=== PATIENT | male | born 2000 | race Caucasian/White ===

== ENCOUNTER 2019-10-27 23:34 | Emergency (ER) | payer MEDICAID, SELFPAY ==
[2019-10-27 23:35] VITALS: BP 118/75; PULSE 88; RESP 16; TEMP 36.4; O2SAT 99; BMI 24.5
--- NOTE | 2019-10-27 23:47 | XR_ITS ---
WS: [id number] PORTABLE CHEST HISTORY: Seizure activity. COMPARISON: None available. Lungs are clear and well expanded. No pleural effusion or pneumothorax. Cardiac size: Normal. Mediastinum/Aorta: Normal mediastinum. No osseous abnormality seen. XR/XR chest 1V portable [id number] IMPRESSION: Unremarkable portable chest.
--- NOTE | 2019-10-27 23:47 | CTR_ITS ---
PROCEDURE INFORMATION: Exam: CT Head Without Contrast Exam date and time: 10/27/2019 11:49 PM Age: 19 years old Clinical indication: Other: Seizure; Additional info: Sz TECHNIQUE: Imaging protocol: Computed tomography of the head without contrast. Radiation optimization: All CT scans at this facility use at least one of these dose optimization techniques: automated exposure control; mA and/or kV adjustment per patient size (includes targeted exams where dose is matched to clinical indication); or iterative reconstruction. COMPARISON: No relevant prior studies available. RADIATION DOSE METRICS: Total DLP: 890.56 mGy-cm FINDINGS: Brain: No acute intracranial hemorrhage or mass effect. No definite acute infarct by CT. MRI could be more sensitive/specific for detection, as clinically directed. Ventricles: Ventricle size is normal for age. Bones/joints: No definite acute skull fracture. Sinuses: Included paranasal sinuses are essentially clear. Mastoid air cells: No significant acute finding. CT/CT head wo con* [id number] IMPRESSION: 1. No acute intracranial hemorrhage or mass effect. 2. No definite acute infarct by CT, see above. 3. Other findings discussed above. Radiation Dose CTDIVOL = (mGy): DLP = 890.56 (mGy-cm)
--- NOTE | 2019-10-27 23:48 | ECG_ITS ---
Measurements Intervals [place] Rate: 80 P: 59 VA: 135 QRS: 70 QRSD: 101 T: 31 QT: 376 QTc: 436 SINUS RHYTHM WITH SINUS ARRHYTHMIA No previous ECG available for comparison Electronically Signed On 10-28-2019 18:44:46 CDT by Abdi Orantes M.D. [email or web address]
--- NOTE | 2019-10-27 23:49 | ED_ITS ---
HPI - Seizure General: Chief Complaint: Seizure Stated Complaint: SEIZURES Time Seen by Provider: 10/27/19 23:38 History of Present Illness: HPI Narrative: This is a 19-year-old male who has had a history of partial seizures by history in the past. He is being worked up for these as an outpatient. He has an EEG scheduled this coming week. He presents after significant episode at home, and then after the ambulance was called, develop tonic-clonic type movements with nonresponsiveness briefly. MD complaint: seizure Onset (ago): hour(s) Description of Episode: loss of consciousness, tonic-clonic movement and post- event confusion -: minutes(s) Witnessed: Yes - by EMS Trauma: No Seizure History: Yes Place: Home Possible Precipitating Event: none Associated symptoms: Reports confusion and weakness (Generalized); Deny chest pain, chills or fever(s) Treatments prior to arrival: benzodiazepines Review of Systems Const: Denies: fever or chills Eyes: Reports: blurry vision; Denies: change in vision ENMT: Denies: painful swallowing, swelling of lips/tongue, bleeding gums or Change in hearing Card: Denies: chest pain, palpitations, irregular heart rhythm or edema Resp: Denies: shortness of breath, productive cough, non-productive cough or wheezing GI: Denies: abdominal pain, nausea or vomiting : Denies: difficulty urinating or blood in urine Musc: Denies: neck pain Skin/Breast: Denies: rash, itching or redness Neuro: Reports: confusion Psych: Denies: anxiety PFSH ED PFSH: Social History Smoking and tobacco status: former smoker Physical Exam Const: GENERAL APPEARANCE: well developed ORIENTATION/CONSCIOUSNESS: Yes oriented to person and Yes oriented to place; not oriented to time HENMT: COMMON NORMALS: normocephalic, external ears normal and external nose normal HEAD & SCALP: normocephalic FACE & SINUS: normal facial exam NOSE: external nose normal and no nasal discharge EXTERNAL EAR: Yes external ears normal MOUTH: tongue normal THROAT: posterior oropharynx normal; no peritonsillar mass Eye: COMMON NORMALS: PERRL, EOMs intact bilaterally and conjunctivae normal EYELID: eyelids normal CONJUNCTIVA: Yes conjunctivae normal PUPIL: Yes PERRL Neck/C-Spine: GENERAL: No tracheal deviation CERVICAL SPINE: No cervical spine tenderness Chest: COMMONS NORMALS: inspection of chest normal CHEST: No tenderness Resp: COMMON NORMALS: clear to auscultation bilaterally EFFORT & INSPECTION: No tachypneic, No respiratory distress, No retractions, No uses accessory muscles and No tracheal deviation AUSCULTATION: clear to auscultation bilaterally, no rhonchi, no wheezes and lung sounds not diminished Cardio: COMMON NORMALS: regular rate and regular rhythm RATE: regular rate RHYTHM: regular rhythm HEART SOUNDS: no murmurs PERIPHERAL PULSES: radial pulses present GI: INSPECTION: No abdominal distension AUSCULTATION: No hyperactive bowel sounds and No hypoactive bowel sounds PALPATION: No guarding and No rigid PERCUSSION: no dullness to percussion and no tympanic to percussion Neuro: SENSORIUM/ORIENTATION: Yes oriented to person, Yes oriented to place and No oriented to time SPEECH: abnormal speech (Mildly slurred) Details: slurred GAIT: Yes unable to assess gait SENSORY EXAM: Yes extremities (Tach) MOTOR EXAM: strength 5/5 throughout, no pronator drift and muscle tone normal throughout Skin: COMMON NORMALS: no rashes or lesions noted GENERAL SKIN EXAM: no r ashes or lesions noted Course Vital Signs: Vital signs: Vital Signs Temperature 97.5 F L 10/27/19 23:35 Pulse Rate 60 10/28/19 05:43 Respiratory Rate 14 10/28/19 05:43 Blood Pressure 101/45 10/28/19 05:43 Pulse Oximetry 98 10/28/19 05:43 MDM - Seizure MDM Narrative: Medical decision making narrative: 19-year-old male with tonic-clonic type seizure movements prior to arrival. He has had some twitching with decreased responsiveness here, although has not been unresponsive, and has not exhibited classic grand mal seizure. He has been given 2 mg of Ativan, and loaded with Keppra here. He is not had any twitching movements since. His labs are essentially normal. His CT is negative. This young man has not had any more episodes of seizure. He has however still postictal, and quite tired from Ativan. We stood him up to walk him a couple of times and he still pretty groggy. He has had a soda, and is talking now. We will give him a bit longer before discharge. If he truly does not return to baseline and is still weak, he could be observed. Lab Data: Labs: Lab Results 10/27/19 10/28/19 10/28/19 Range/Units 00:15 00:55 00:55 WBC (4.5-13.0) 10^3/ uL RBC (4.1-5.3) 10^6/u L Hgb (11.7-16.6) g/dL Hct (42.0-52.0) % MCV (80-94) fL MCH (28.0-34.0) pg MCHC (30.0-36.0) g/dL RDW (12.1-15.1) % Plt Count (130-400) 10^3/c mm MPV (7.4-10.4) fL Neut % (Auto) % Lymph % (Auto) % [place] % (Auto) % Eos % (Auto) % Baso % (Auto) % Neut # (Auto) (1.8-8.0) 10^3/u L Lymph # (Auto) (1.5-6.5) 10^3/u L [place] # (Auto) (0.2-0.9) 10^3/u L Eos # (Auto) (0.0-0.8) 10^3/u L Baso # (Auto) (0.0-0.1) 10^3/u L Nucleated RBC % (a uto) % Nucleated RBCs # /100WBC Specimen Type Arterial Sample Site Radial, right ABG pH 7.40 (7.35-7.45) ABG pCO2 44.6 (35-45) mmHg ABG pO2 95.6 (80.0-100.0) mmH g ABG HCO3 27.6 H (22-26) mmol/L ABG Base Excess 2.3 H (-2.0-2.0) mmol/ L Kojo Test Pos Hematocrit 43.7 (42-52) % Marketing Teacher ID ellpe Sodium (136-145) mmol/L Potassium (3.5-5.1) mmol/L Chloride (98-107) mmol/L Carbon Dioxide (22-29) mmol/L Anion Gap (5-19) BUN (6-20) mg/dL Creatinine (0.7-1.2) mg/dL GFR Calculation (90-130) mL/min Glucose (65-115) mg/dL Calculated Osmolal ity (285-295) mOsm/k g Calcium (8.5-10.5) mg/dL Phosphorus (2.5-4.5) mg/dL Magnesium (1.7-2.3) mg/dL Total Bilirubin (0.15-1.2) mg/dL AST (0-40) U/L ALT (0-41) U/L Alkaline Phosphata se (40-130) IU/L Total Protein (6.6-8.7) g/dL Albumin (3.5-5.2) g/dL Globulin (1.3-4.6) g/dL Urine Color Yellow (Yellow) Urine Appearance Clear (CLEAR) Urine pH 9 H (5-7) Ur Specific Gravit y 1.010 (1.005-1.030) Urine Protein Neg (Negative) Urine Glucose (UA) Norm (Normal) Urine Ketones Negative (Negative) Urine Blood Neg (Negative) Urine Nitrate Negative (Negative) Urine Bilirubin Neg (NEGATIVE) Prot Sulfosalicyli c Acd Negative (Negative) Urine Urobilinogen Norm (Negative) mg/dL Ur Leukocyte Dasia ase Negative (Negative) Urine Opiates Scre en Negative (Negative) ng/mL Ur Barbiturates Sc reen Negative (Negative) ng/mL Valproic Acid (50-100) mcg/mL Ur Phencyclidine S crn Negative (Negative) ng/mL Ur Amphetamines Sc reen Negative (Negative) ng/mL U Benzodiazepines Scrn Positive H (Negative) ng/mL Urine Cocaine Scre en Negative (Negative) ng/mL U Marijuana (THC) Screen Negative (Negative) ng/mL Ethyl Alcohol (0-10) mg/dL 10/28/19 10/28/19 10/28/19 Range/Units 01:04 01:04 01:04 WBC 8.4 (4.5-13.0) 10^3/ uL RBC 4.43 (4.1-5.3) 10^6/u L Hgb 13.9 (11.7-16.6) g/dL Hct 39.8 L (42.0-52.0) % MCV 89.8 (80-94) fL MCH 31.4 (28.0-34.0) pg MCHC 34.9 (30.0-36.0) g/dL RDW 11.5 L (12.1-15.1) % Plt Count 167 (130-400) 10^3/c mm MPV 10.7 H (7.4-10.4) fL Neut % (Auto) 55.8 % Lymph % (Auto) 32.1 % [place] % (Auto) 9.5 % Eos % (Auto) 1.7 % Baso % (Auto) 0.7 % Neut # (Auto) 4.7 (1.8-8.0) 10^3/u L Lymph # (Auto) 2.7 (1.5-6.5) 10^3/u L Johnston # (Auto) 0.8 (0.2-0.9) 10^3/u L Eos # (Auto) 0.1 (0.0-0.8) 10^3/u L Baso # (Auto) 0.1 (0.0-0.1) 10^3/u L Nucleated RBC % (a uto) 0 % Nucleated RBCs # 0.0 /100WBC Specimen Type Sample Site ABG pH (7.35-7.45) ABG pCO2 (35-45) mmHg ABG pO2 (80.0-100.0) mmH g ABG HCO3 (22-26) mmol/L ABG Base Excess (-2.0-2.0) mmol/ L Kojo Test Hematocrit (42-52) % Marketing Teacher ID Sodium 138 (136-145) mmol/L Potassium 3.6 (3.5-5.1) mmol/L Chloride 101 (98-107) mmol/L Carbon Dioxide 26 (22-29) mmol/L Anion Gap 14.6 (5-19) BUN 12 (6-20) mg/dL Creatinine 0.9 (0.7-1.2) mg/dL GFR Calculation 107.6 (90-130) mL/min Glucose 96 (65-115) mg/dL Calculated Osmolal ity 282 L (285-295) mOsm/k g Calcium 8.6 (8.5-10.5) mg/dL Phosphorus 3.7 (2.5-4.5) mg/dL Magnesium 2.3 (1.7-2.3) mg/dL Total Bilirubin 0.2 (0.15-1.2) mg/dL AST 36 (0-40) U/L ALT 14 (0-41) U/L Alkaline Phosphata se 71 (40-130) IU/L Total Protein 6.2 L (6.6-8.7) g/dL Albumin 4.1 (3.5-5.2) g/dL Globulin 2.1 (1.3-4.6) g/dL Urine Color (Yellow) Urine Appearance (CLEAR) Urine pH (5-7) Ur Specific Gravit y (1.005-1.030) Urine Protein (Negative) Urine Glucose (UA) (Normal) Urine Ketones (Negative) Urine Blood (Negative) Urine Nitrate (Negative) Urine Bilirubin (NEGATIVE) Prot Sulfosalicyli c Acd (Negative) Urine Urobilinogen (Negative) mg/dL Ur Leukocyte Dasia ase (Negative) Urine Opiates Scre en (Negative) ng/mL Ur Barbiturates Sc reen (Negative) ng/mL Valproic Acid 75.6 (50-100) mcg/mL Ur Phencyclidine S crn (Negative) ng/mL Ur Amphetamines Sc reen (Negative) ng/mL U Benzodiazepines Scrn (Negative) ng/mL Urine Cocaine Scre en (Negative) ng/mL U Marijuana (THC) Screen (Negative) ng/mL Ethyl Alcohol < 10 (0-10) mg/dL Discharge Plan Discharge Patient Disposition: Home, Self-Care Clinical Impression: Generalized seizure Condition: Stable Discharge Orders: Discharge Order (Routine); Ordered 10/28/19 Ordered By: Tay Tripathi Referrals: Yordy Christensen MD [Primary Care Provider] - Discharge Diet: Advance as tolerated Discharge Activity: Increase activity as tolerated Patient Instructions: Recurrent Seizures Adult (ED) Activity Restrictions/Additional Instructions: Return for worsening mental status, weakness, repeated episodes of seizure, other concerning symptoms. Be sure to call later this morning to let the neurologist know that you were seen in the emergency department for a seizure, and given medication. Follow-up for your EEG tomorrow. Coding Level of Care Code ED International Project Manager for Gissel Fwmeri Exam Comprehensive
[2019-10-27] MEDS: LORazepam 2 mg/mL INJ 1 mL IVP (23:51)
[2019-10-28] VITALS (23 sets, daily range): BP systolic 85–162; BP diastolic 42–78; PULSE 18–98; RESP 13–18; TEMP 37.1; O2SAT 94–99
[2019-10-28] MEDS: sodium chloride 0.9% 500 ML IV (00:01)
[2019-10-28 00:24] LABS: ABG PCO2 44.6 mmHg (35-45); Arterial Blood Gas Hematocrit 43.7 % (42-52); Base Excess ABG 2.3 mmol/L (-2.0-2.0); Blood Gas Allen Test Pos; Blood Gas Sample Site Radial, right; Blood Gas Sample Type Arterial; HCO3 ABG 27.6 mmol/L (22-26); PO2 ABG 95.6 mmHg (80.0-100.0)
[2019-10-28 01:12] LABS: Add Urine Microscopic? NO
[2019-10-28 01:16] LABS: Basophils # 0.1 10^3/uL (0.0-0.1); Basophils % 0.7 %; Eosinophils # 0.1 10^3/uL (0.0-0.8); Eosinophils % 1.7 %; Hematocrit 39.8 % (42.0-52.0); Hemoglobin 13.9 g/dL (11.7-16.6); Lymphocytes # 2.7 10^3/uL (1.5-6.5); Lymphocytes % 32.1 %; Mean Corpuscular HGB Conc 34.9 g/dL (30.0-36.0); Mean Corpuscular Hemoglobin 31.4 pg (28.0-34.0); Mean Corpuscular Volume 89.8 fL (80-94); Mean Platelet Volume 10.7 fL (7.4-10.4); Monocytes # 0.8 10^3/uL (0.2-0.9); Monocytes % 9.5 %; Neutrophils # 4.7 10^3/uL (1.8-8.0); Neutrophils % 55.8 %; Nucleated Red Blood Cells % 0 %; Platelet Count 167 10^3/cmm (130-400); Red Blood Count 4.43 10^6/uL (4.1-5.3); Red Cell Distribution Width 11.5 % (12.1-15.1); White Blood Count 8.4 10^3/uL (4.5-13.0)
[2019-10-28 01:26] LABS: Alanine Aminotransferase 14 U/L (0-41); Albumin Level 4.1 g/dL (3.5-5.2); Alkaline Phosphatase 71 IU/L (40-130); Anion Gap 14.6 (5-19); Aspartate Amino Transferase 36 U/L (0-40); Blood Urea Nitrogen 12 mg/dL (6-20); Calcium 8.6 mg/dL (8.5-10.5); Carbon Dioxide 26 mmol/L (22-29); Chloride 101 mmol/L (98-107); Globulin 2.1 g/dL (1.3-4.6); Glomerular Filtration Rate 107.6 mL/min (90-130); Glucose 96 mg/dL (65-115); Magnesium 2.3 mg/dL (1.7-2.3); Osmolality Calculated 282 mOsm/kg (285-295); Phosphorus 3.7 mg/dL (2.5-4.5); Potassium 3.6 mmol/L (3.5-5.1); Sodium 138 mmol/L (136-145); Total Bilirubin 0.2 mg/dL (0.15-1.2); Total Protein 6.2 g/dL (6.6-8.7)
[2019-10-28 01:27] LABS: Amphetamines Screen Urine Negative (Negative); Barbiturates Screen Urine Negative (Negative); Benzodiazepines Screen Urine Positive (Negative); Cocaine Screen Urine Negative (Negative); Opiate Screen Urine Negative (Negative); PCP Screen Urine Negative (Negative); THC Screen Urine Negative (Negative)
[2019-10-28 01:28] LABS: Urine Appearance Clear (CLEAR); Urine Color Yellow (Yellow)
[2019-10-28 01:29] LABS: Bilirubin Urine Neg (NEGATIVE); Blood Urine Neg (Negative); Glucose Urine UA Norm (Normal); Ketones Urine Negative (Negative); Leukocyte Esterase Urine Negative (Negative); Nitrate Urine Negative (Negative); Protein Urine Neg (Negative); Sulfosalicylic Acid Urine Negative (Negative); Urobilinogen Urine Norm (Negative); pH Urine 9 (5-7)
[2019-10-28 01:33] LABS: Alcohol Level < 10 mg/dL (0-10)
--- NOTE | 2019-10-28 03:00 | PC.NURSE ---
xray in room
[2019-10-28] MEDS: sodium chloride 0.9% 500 ML 999 ML IV (03:07)
[2019-10-28 03:32] LABS: Valproic Acid Level 75.6 mcg/mL (50-100)
--- NOTE | 2019-10-28 04:30 | PC.NURSE ---
patient sat up and ambulated with nurse assist, patient was unable to walk by himself, was dizzy, and unsteady on his feet. Patient was only able to walk a few steps with nurses help.
--- NOTE | 2019-10-28 04:59 | PC.NURSE ---
Ambulated patient in room, patient unsteady on feet, patient needed nurse assist to stand. HCP notified.
--- NOTE | 2019-10-28 06:54 | PC.NURSE ---
Patient got up by nurse to ambulate. Patient sat up on bed and tried to stand with nurses help but was unable to bear weight on legs. Patient stated he was dizzy at that time. Patient was laid back on bed by nurse and HCP was informed of patient status.
--- NOTE | 2019-10-28 07:45 | PC.NURSE ---
Patient awoke to take Depakote at this time, however, patient is still very drowsy. Patient has a difficult time keeping eyes open and states he does not feel that he can ambulate at this time.
--- NOTE | 2019-10-28 08:23 | W.ED.SEIZURE ---
HPI - Seizure General: Chief Complaint: Seizure Stated Complaint: SEIZURES Time Seen by Provider: 10/27/19 23:38 History of Present Illness: Trauma: No Seizure History: Yes Place: Home Treatments prior to arrival: benzodiazepines PFSH ED PFSH: Medical History (Updated 10/28/19 @ 11:25 by Dante Fletcher MD) ADHD Bipolar disorder Mild intellectual disability Seizure disorder Social History (Updated 10/28/19 @ 11:25 by Dante Fletcher MD) Smoking and tobacco status: never smoked Alcohol intake: never Course Vital Signs: Vital signs: Vital Signs Temperature 98.8 F 10/28/19 15:52 Pulse Rate 18 L 10/28/19 15:52 Respiratory Rate 18 10/28/19 15:52 Blood Pressure 102/58 10/28/19 15:52 Pulse Oximetry 97 10/28/19 15:52 MDM - Seizure MDM Narrative: Medical decision making narrative: Initially patient was to go home but developed problems with recurrent seizures we had made plans to admit him here and then found we are unable to get an ICU bed because of the recurrent seizures we felt he needed to be in the ICU where he could be monitored. He usually sees a neurologist in [place] and we discussed with the caregivers that he would need to be transferred they asked to go back to [place] so that he could continue care without neurologist they did agree to take him at [facility] arrangements were made and patient was transferred. Lab Data: Labs: Lab Results 10/27/19 10/28/19 10/28/19 Range/Units 00:15 00:55 00:55 WBC (4.5-13.0) 10^3/ uL RBC (4.1-5.3) 10^6/u L Hgb (11.7-16.6) g/dL Hct (42.0-52.0) % MCV (80-94) fL MCH (28.0-34.0) pg MCHC (30.0-36.0) g/dL RDW (12.1-15.1) % Plt Count (130-400) 10^3/c mm MPV (7.4-10.4) fL Neut % (Auto) % Lymph % (Auto) % [place] % (Auto) % Eos % (Auto) % Baso % (Auto) % Neut # (Auto) (1.8-8.0) 10^3/u L Lymph # (Auto) (1.5-6.5) 10^3/u L [place] # (Auto) (0.2-0.9) 10^3/u L Eos # (Auto) (0.0-0.8) 10^3/u L Baso # (Auto) (0.0-0.1) 10^3/u L Nucleated RBC % (a uto) % Nucleated RBCs # /100WBC Specimen Type Arterial Sample Site Radial, right ABG pH 7.40 (7.35-7.45) ABG pCO2 44.6 (35-45) mmHg ABG pO2 95.6 (80.0-100.0) mmH g ABG HCO3 27.6 H (22-26) mmol/L ABG Base Excess 2.3 H (-2.0-2.0) mmol/ L Kojo Test Pos Hematocrit 43.7 (42-52) % Automation Control Integrator ID ellpe Sodium (136-145) mmol/L Potassium (3.5-5.1) mmol/L Chloride (98-107) mmol/L Carbon Dioxide (22-29) mmol/L Anion Gap (5-19) BUN (6-20) mg/dL Creatinine (0.7-1.2) mg/dL GFR Calculation (90-130) mL/min Glucose (65-115) mg/dL Calculated Osmolal ity (285-295) mOsm/k g Calcium (8.5-10.5) mg/dL Phosphorus (2.5-4.5) mg/dL Magnesium (1.7-2.3) mg/dL Total Bilirubin (0.15-1.2) mg/dL AST (0-40) U/L ALT (0-41) U/L Alkaline Phosphata se (40-130) IU/L Total Protein (6.6-8.7) g/dL Albumin (3.5-5.2) g/dL Globulin (1.3-4.6) g/dL Urine Color Yellow (Yellow) Urine Appearance Clear (CLEAR) Urine pH 9 H (5-7) Ur Specific Gravit y 1.010 (1.005-1.030) Urine Protein Neg (Negative) Urine Glucose (UA) Norm (Normal) Urine Ketones Negative (Negative) Urine Blood Neg (Negative) Urine Nitrate Negative (Negative) Urine Bilirubin Neg (NEGATIVE) Prot Sulfosalicyli c Acd Negative (Negative) Urine Urobilinogen Norm (Negative) mg/dL Ur Leukocyte Dasia ase Negative (Negative) Urine Opiates Scre en Negative (Negative) ng/mL Ur Barbiturates Sc reen Negative (Negative) ng/mL Valproic Acid (50-100) mcg/mL Ur Phencyclidine S crn Negative (Negative) ng/mL Ur Amphetamines Sc reen Negative (Negative) ng/mL U Benzodiazepines Scrn Positive H (Negative) ng/mL Urine Cocaine Scre en Negative (Negative) ng/mL U Marijuana (THC) Screen Negative (Negative) ng/mL Ethyl Alcohol (0-10) mg/dL 10/28/19 10/28/19 10/28/19 Range/Units 01:04 01:04 01:04 WBC 8.4 (4.5-13.0) 10^3/ uL RBC 4.43 (4.1-5.3) 10^6/u L Hgb 13.9 (11.7-16.6) g/dL Hct 39.8 L (42.0-52.0) % MCV 89.8 (80-94) fL MCH 31.4 (28.0-34.0) pg MCHC 34.9 (30.0-36.0) g/dL RDW 11.5 L (12.1-15.1) % Plt Count 167 (130-400) 10^3/c mm MPV 10.7 H (7.4-10.4) fL Neut % (Auto) 55.8 % Lymph % (Auto) 32.1 % [place] % (Auto) 9.5 % Eos % (Auto) 1.7 % Baso % (Auto) 0.7 % Neut # (Auto) 4.7 (1.8-8.0) 10^3/u L Lymph # (Auto) 2.7 (1.5-6.5) 10^3/u L [place] # (Auto) 0.8 (0.2-0.9) 10^3/u L Eos # (Auto) 0.1 (0.0-0.8) 10^3/u L Baso # (Auto) 0.1 (0.0-0.1) 10^3/u L Nucleated RBC % (a uto) 0 % Nucleated RBCs # 0.0 /100WBC Specimen Type Sample Site ABG pH (7.35-7.45) ABG pCO2 (35-45) mmHg ABG pO2 (80.0-100.0) mmH g ABG HCO3 (22-26) mmol/L ABG Base Excess (-2.0-2.0) mmol/ L Kojo Test Hematocrit (42-52) % Automation Control Integrator ID Sodium 138 (136-145) mmol/L Potassium 3.6 (3.5-5.1) mmol/L Chloride 101 (98-107) mmol/L Carbon Dioxide 26 (22-29) mmol/L Anion Gap 14.6 (5-19) BUN 12 (6-20) mg/dL Creatinine 0.9 (0.7-1.2) mg/dL GFR Calculation 107.6 (90-130) mL/min Glucose 96 (65-115) mg/dL Calculated Osmolal ity 282 L (285-295) mOsm/k g Calcium 8.6 (8.5-10.5) mg/dL Phosphorus 3.7 (2.5-4.5) mg/dL Magnesium 2.3 (1.7-2.3) mg/dL Total Bilirubin 0.2 (0.15-1.2) mg/dL AST 36 (0-40) U/L ALT 14 (0-41) U/L Alkaline Phosphata se 71 (40-130) IU/L Total Protein 6.2 L (6.6-8.7) g/dL Albumin 4.1 (3.5-5.2) g/dL Globulin 2.1 (1.3-4.6) g/dL Urine Color (Yellow) Urine Appearance (CLEAR) Urine pH (5-7) Ur Specific Gravit y (1.005-1.030) Urine Protein (Negative) Urine Glucose (UA) (Normal) Urine Ketones (Negative) Urine Blood (Negative) Urine Nitrate (Negative) Urine Bilirubin (NEGATIVE) Prot Sulfosalicyli c Acd (Negative) Urine Urobilinogen (Negative) mg/dL Ur Leukocyte Dasia ase (Negative) Urine Opiates Scre en (Negative) ng/mL Ur Barbiturates Sc reen (Negative) ng/mL Valproic Acid 75.6 (50-100) mcg/mL Ur Phencyclidine S crn (Negative) ng/mL Ur Amphetamines Sc reen (Negative) ng/mL U Benzodiazepines Scrn (Negative) ng/mL Urine Cocaine Scre en (Negative) ng/mL U Marijuana (THC) Screen (Negative) ng/mL Ethyl Alcohol < 10 (0-10) mg/dL Discharge Plan Discharge Patient Disposition: Home, Self-Care Clinical Impression: Generalized seizure Condition: Stable Prescriptions: No Action Depakote 250 mg Tablet,Delayed Release (Dr/Ec) See Rx Instructions .ROUTE .COMPLEX RF: 0 cetirizine 10 mg Tablet 10 mg PO DAILY PRN (Reason: Allergy Symptoms) RF: 0 Tylenol 325 mg Capsule 325 mg PO Q8H PRN (Reason: Pain) RF: 0 Latuda 20 mg Tablet 20 mg PO DAILY RF: 0 Discharge Orders: Discharge Order (Routine); Ordered 10/28/19 Ordered By: Tay Tripathi Referrals: Yordy Christensen MD [Primary Care Provider] - Discharge Diet: Advance as tolerated Discharge Activity: Increase activity as tolerated Patient Instructions: Recurrent Seizures Adult (ED) Activity Restrictions/Additional Instructions: Return for worsening mental status, weakness, repeated episodes of seizure, other concerning symptoms. Be sure to call later this morning to let the neurologist know that you were seen in the emergency department for a seizure, and given medication. Follow-up for your EEG tomorrow. Discharge Date/Time: 10/28/19 13:20 Coding Level of Care Code ED Smoke Jumper for Gissel Matos
[2019-10-28] MEDS: LORazepam 2 mg/mL INJ 1 mL IVP (08:54)
--- NOTE | 2019-10-28 10:32 | PC.NURSE ---
Patient's caregiver reports more seizure activity lasting approx 20 seconds. Patient had one longer 45-60 second episode, appearing postictal afterward. Physician notified, arrangements attempting to be made for patient to be admitted for observation at this time.
--- NOTE | 2019-10-28 11:20 | PM.HP ---
Providers/Chief Complaint Primary Care Provider: Yordy Christensen MD Chief Complaint: SEIZURES History of Present Illness Lino Rossi is a 19 year old male who presented to the hospital with concern of seizure. Caregiver is present with him during the interview, as patient has developmental delay and cannot give an adequate history. Patient reports he has had some dizziness, blurry vision recently. He denies any headache currently. He does report his vision is blurry currently. Caregiver reports that he has been having episodes of staring, that his neurologist has called absence seizures. Apparently these have been going on for quite some time, but in August they were reported and he was placed on Depakote but he was still having around 3 events per week and this was increased on October 23. He had never previously had an episode of generalized shaking. He had been complaining of blurry vision, and being dizzy to his caregiver last night after several episodes of staring. As he did not seem to fully recover she called the ambulance. She relates that when the ambulance arrived, while he was being loaded in the ambulance he had a generalized tonic-clonic seizure. It is unknown if he lost bowel or bladder control. He was brought to the emergency department, received some Ativan, 1 g of Keppra, and a Depakote level was done which was normal. Other studies as noted in the ER chart. Caregiver reports he has had no recent vomiting, head injury, fever, neck pain. He has had no significant cough. After my evaluation, nurse and reported several episodes of shaking, and he received another IV dose of Ativan in the ER. Review of Systems General: Reports: 10 or more systems reviewed and unremarkable except in HPI and below Const: Denies: fever or chills Eyes: Reports: blurry vision ENMT: Denies: throat pain Card: Denies: chest pain Resp: Denies: shortness of breath GI: Denies: abdominal pain, nausea or vomiting : Denies: difficulty urinating Musc: Denies: neck pain Skin/Breast: Denies: rash Psych: Denies: depression Endo: Denies: excessive urination Romero/Lymph: Denies: easy bruising All/Imm: Denies: hives Medications/Allergies Home Medications Medication Instructions Recorded Confirmed Last Taken Type acetaminophen [Tylenol] 325 mg PO Q8H PRN 10/28/19 10/28/19 10/27/19 History cetirizine 10 mg PO DAILY PRN 10/28/19 10/28/19 Unknown History divalproex [Depakote] See Rx Instructions .ROUTE .COMPLEX 10/28/19 10/28/19 10/27/19 History lurasidone [Latuda] 20 mg PO DAILY 10/28/19 10/28/19 10/27/19 History Allergies Allergy/AdvReac Type Severity Reaction Status Date / Time asenapine [From Saphris] Allergy Unknown Verified 10/28/19 08:37 PFSH Acute PFSH: Medical History (Updated 10/28/19 @ 11:25 by Dante Fletcher MD) ADHD Bipolar disorder Mild intellectual disability Seizure disorder Social History (Updated 10/28/19 @ 11:25 by Dante Feltcher MD) Smoking and tobacco status: never smoked Alcohol intake: never Substance/Drug Use: never Supplemental PFSH Information: Family history unknown. Under the care of the state. Vitals/I&O/Wt Last Vital Signs Temp 97.5 F L 10/27/19 23:35 Pulse 65 10/28/19 10:00 Resp 16 10/28/19 10:00 BP 92/62 10/28/19 10:00 Pulse Ox 98 10/28/19 10:00 10/27/19 10/28/19 10/28/19 22:59 06:59 14:59 Intake Total 1110 / 1110 Balance 1110 / 1110 Weight last 48 hrs Weight 68.946 kg Physical Exam Narrative: EXAM NARRATIVE: General exam is a sleepy white male, who will answer a few questions during my initial interview Neurologic: No obvious focal deficits Skin without rash HEENT: Pupils equally round. Oropharynx clear. Neck is supple no lymphadenopathy or thyromegaly Cardiovascular regular rate and rhythm without murmur, no S3 or S4 Lungs clear no wheezing or crackles Abdomen is soft with positive bowel sounds. No obvious organomegaly deferred Extremities no cyanosis clubbing or edema, cap refill brisk Skin no rash Neuro no focal deficits Data : 10/28/19 01:04 10/28/19 01:04 Other Labs: Liver function tests are normal. Urinalysis is not concerning. Urine drug screen only positive for benzodiazepines which were given. Alcohol level not significant. Valproic acid level 75.6. CT head, chest x-ray normal A&P Assessment and plan (1) Generalized seizure: Observation, to ICU. He has been on Depakote. Level was adequate. On arrival to the emergency department Keppra has been initiated. He is still having occasional episodes of shaking, that are unclear. I have discussed the case with neurology for consultation and an EEG is being arranged. Plan on continuing Keppra 1000 mg every 12 hours. Neurology will help decide if Depakote is still indicated. Ativan as needed for breakthrough seizures Status: Acute (2) Seizure disorder: See above Status: Acute Additional A&P Information Mild intellectual disability History of ADHD History of bipolar disorder Attestations Medical Necessity Statement*: Will need less than 2 midnight stay for evaluation of seizure, and its evaluation. Time Spent in Patient Care: Greater than 35 minutes Coding Level of Care Code Acute Lockstitch Topstitcher for Gissel Matos Diagnoses Generalized seizure R56.9 Seizure disorder G40.909
[2019-10-28] MEDS: LORazepam 2 mg/mL INJ 1 mL (11:41)
--- NOTE | 2019-10-28 11:54 | PC.NURSE ---
Nurse was called to room by pt caregiver. Pt caregiver stated he just keeps having seizures, there is very little time in between . This nurse observed pt seizure activity. Pt was moaning and curled up in position and flopping around. Pt was rolled and there was no rigidity noted in pt muscles, pt was breathing throughout episode. Pt immediately opened his eyes and said hey nurse, what time did I get here last night? . There was no post-ictal period noted. Mara Cardoso and Chance updated.
== END 2019-10-28 13:20 | disposition home or self-care (01) ==
PROVIDERS: Emergency Provider Emergency Medicine; PCP Family Medicine
DX: G40.89 Other seizures (principal); Z87.891 Personal history of nicotine dependence
CPT/HCPCS: 12345; 36600; 70450; 71045; 80053; 80164; 80306; 80307; 81003; 82803; 83735; 84100; 85025; 93005; 96365; 96375; 96376; 99284; 99285; J1953; J2060; J7040

== ENCOUNTER 2020-02-13 07:29 | Day surgery (SDC) | payer MEDICAID, SELFPAY ==
[2020-02-12 16:29] VITALS: BMI 24.5
[2020-02-13] VITALS (9 sets, daily range): BP systolic 118–149; BP diastolic 24–85; PULSE 72–99; RESP 12–20; TEMP 36.4–36.6; O2SAT 95–100
[2020-02-13] MEDS: sodium chloride 0.9% 1,000 ML 30 ML IV (07:55)
--- NOTE | 2020-02-13 08:27 | ANES.PREANE2 ---
Pre-Anesthetic Assessment Pre-Anesthetic Assessment: Height/Weight: Height 1.68 m Weight 68.946 kg Temp Pulse Resp BP Pulse Ox 97.7 F 72 18 123/85 99 02/13/20 07:41 02/13/20 07:41 02/13/20 07:41 02/13/20 07:41 02/13/20 07:41 Preop Diagnosis: pilonidal cyst Proposed Procedure: Operation Date: 02/13/20 09:15 Proposed Procedures p Pilonidal Cystectomy(Not Applicable) - Robert Staley MD Familial anesthetic complications: None Last intake: Intake Last Liquid Date 02/12/20 Last Liquid Time 18:00 Last Solid Date 02/12/20 Last Solid Time 18:00 Social: Social History: No alcohol and No tobacco Airway: Cervical ROM: WNL MP: 3 Dentition: Full Anesthetic Plan: ASA status: 1 Anesthesia: General Meds/Allergies Current Medications: Current Medications Generic Name Dose Route Start Last Admin Trade Name Freq PRN Reason Stop Dose Admin Sodium Chloride 1,000 mls @ 30 ml s/hr 02/13/20 07:45 02/13/20 07:55 Sodium Chloride 0.9% IV 02/14/20 07:44 30 mls/hr .Q24H BOYD Administration PFSH Anesthesia PFSH: Medical History ADHD Bipolar disorder Mild intellectual disability Seizure disorder Social History (Updated 10/28/19 @ 11:25 by Dante Fletcher MD) Smoking and tobacco status: never smoked Alcohol intake: never Data Anesthesia Cardiac Studies: No Data to Display
--- NOTE | 2020-02-13 09:38 | W.PM.OPSUD ---
Surgery/Procedure H&P Update DATE OF PROCEDURE: February 13, 2020 DATE H&P PERFORMED: 01/28/20 H&P UPDATE INFORMATION: No changes to prior documentation PREOP DIAGNOSIS: pilonidal cyst PLANNED PROCEDURE: Operation Date: 02/13/20 09:15 Proposed Procedures p Pilonidal Cystectomy(Not Applicable) - Robert Staley MD
[2020-02-13] MEDS: neomycin-poly-bacitracin oint 28 gm 1 APPLIC TOPICAL (10:24)
--- NOTE | 2020-02-13 10:25 | PM.OP ---
Operative Report Date of procedure: February 13, 2020 Pre-op Diagnosis: pilonidal cyst with sinus. Post-op diagnosis: same Procedure Done: Pilonidal cystectomy. Specimens removed/disposition: Pilonidal cyst tissue. Surgeon: Robert Staley Anesthesia: General Estimated blood loss (mL): 5 Complications: None. Condition: stable Disposition: PACU Procedure: The patient was brought to the operating room and was placed in a supine position on the operating room table. General endotracheal anesthesia was induced. The patient was moved to a left lateral decubitus position on the table. The gluteal cleft was prepped and draped in a sterile fashion. A curvilinear incision was carried off to the left side of midline, connecting to the draining sinus superiorly on the left side. Cautery was used to enter the subcutaneous tissue and excise the entire sinus tract. A skin flap was then created across the midline by dividing the tissue just underneath the dermis. The underlying tissue was fibrous and firm. This was completely excised using cautery back to normal-appearing tissue. Quite a bit of hair/follicles were present in the specimen. The wound was extensively irrigated. Further inspection and palpation revealed no other obvious abnormalities. The dermis was closed in the center using 2 inverted interrupted sutures of 0 Vicryl, leaving a gap in between where a simple suture of 3-0 nylon was placed. The wound was then packed through the gaps with triple antibiotic ointment and a strip of half-inch Nu Gauze. A fluff dressing was placed. The patient was taken to the recovery area in stable condition postoperatively.
--- NOTE | 2020-02-13 10:47 | SUR.PHASEI ---
1044 PATIENT TO PACU FROM OR. NO DISTRESS. RR EVEN AND UNLABORED. DRESSING TO LOWER BACK, CDI.
--- NOTE | 2020-02-13 11:16 | SUR.PHASEI ---
1111 PATIENT TO OPS. NO DISTRESS. DRESSING TO LOWER BACK, CDI. TOLERATING ICE CHIPS. DENIES NAUSEA OR PAIN.
== END 2020-02-13 12:00 | disposition home or self-care (01) ==
PROVIDERS: PCP Family Medicine; Visit Provider Surgery
PROC: (CPT 11770; principal; 2020-02-13 09:15)
DX: L05.91 Pilonidal cyst without abscess (principal); J45.909 Unspecified asthma, uncomplicated
CPT/HCPCS: 11770; 12345; 88304; J0330; J0690; J2405; J2704; J3010; J3490; J7030